=== PATIENT | male | born 1945 | race Caucasian/White ===

== ENCOUNTER 2018-03-31 11:00 | Inpatient (IN) | payer MEDICARE ==
[~2018-03-31] VITALS: Ht 188 cm; Wt 90.0 kg
[2018-03-31 13:58] LABS: BASOPHILS # (AUTO) 0.1 X10'3 (0-0.2); BASOPHILS % (AUTO) 0.3 % (0-1); EOSINOPHILS % (AUTO) 0 % (0-6); HEMATOCRIT 41.4 % (42.0-52.0); HEMOGLOBIN 13.2 g/dl (14.0-17.9); LYMPHOCYTES # (AUTO) 0.7 X10'3 (1.1-4.8); LYMPHOCYTES % (AUTO) 3.5 % (21-51); MEAN CORPUSCULAR HEMOGLOBIN 30.1 PG (27.0-31.0); MEAN CORPUSCULAR HGB CONC 31.9 g/dL (33.0-36.5); MEAN CORPUSCULAR VOLUME 94.4 FL (78-98); MEAN PLATELET VOLUME 8.8 FL (7.4-10.4); MONOCYTES # (AUTO) 1.5 X10'3 (0-0.9); MONOCYTES % (AUTO) 7.1 % (2-12); NEUTROPHILS % (AUTO) 89.1 % (42-75); PLATELET COUNT 291 X10'3 (140-440); RED BLOOD COUNT 4.38 X10'6 (4.70-6.10); RED CELL DISTRIBUTION WIDTH 13.3 % (11.5-14.5); WHITE BLOOD COUNT 21.3 X10'3 (4.5-11.0)
[2018-03-31 14:11] LABS: ALANINE AMINOTRANSFERASE 30 U/L (12-78); ALBUMIN 2.7 G/DL (3.4-5.0); ALBUMIN/GLOBULIN RATIO 0.6 (1.1-1.5); ALKALINE PHOSPHATASE 162 IU/L (46-116); ANION GAP 8 (8-16); ASPARTATE AMINO TRANSFERASE 28 U/L (10-37); BILIRUBIN,TOTAL 0.8 MG/DL (0.1-1.0); BLOOD UREA NITROGEN 29 MG/DL (7-18); BUN/CREATININE RATIO 30.5 (5.4-32.0); CALCIUM 9.3 MG/DL (8.5-10.1); CHLORIDE 99 MMOL/L (99-107); CREATININE 0.95 MG/DL (0.60-1.10); GLUCOSE 124 MG/DL (70-104); LIPASE 77 U/L (73-393); MAGNESIUM 2.2 MG/DL (1.5-2.4); POTASSIUM 4.4 MMOL/L (3.5-5.1); SODIUM 134 MMOL/L (135-145); eGFR 78 ML/MIN
[2018-03-31] MEDS ORDERED: normal saline 1000ML IV soln IVB ONE (14:50)
[2018-03-31] MEDS ORDERED: bisacodyl 10mg suppository rectal RC ONE (14:50)
[2018-03-31] MEDS ORDERED: iohexol 300mg/ml 100ml inj. ONE (14:57)
[2018-03-31 14:59] LABS: CLARITY,URINE CLEAR (Clear); COLOR,URINE AMBER (Yellow); GLUCOSE, URINE NEGATIVE (Neg); KETONES,URINE TRACE mg/dl (Neg); LEUKOCYTE ESTERASE ,URINE NEGATIVE (Neg); NITRITES, URINE NEGATIVE (Neg); OCCULT BLOOD,URINE NEGATIVE (Neg); PH,URINE 5.5 (4.8-8.0); PROTEIN,URINE 100 mg/dl (Neg)
[2018-03-31 15:02] LABS: UA COLLECTION TYPE URINAL
[2018-03-31 15:04] LABS: BACTERIA,URINE NONE SEEN /HPF (Neg); MUCUS STRANDS MODERATE /LPF (Neg); SQUAMOUS EPITHELIAL CELL,UR NONE SEEN /LPF (FEW); WBC,URINE 0-4 /HPF (0-4)
[2018-03-31 15:05] LABS: RBC,URINE 0-2 /HPF (0-2)
[2018-03-31 16:55] LABS: CREATINE KINASE 37 U/L (39-308)
[2018-03-31 16:58] LABS: PARTIAL THROMBOPLASTIN TIME 38 SECONDS (22-32); PROTHROMBIN TIME 10.2 SECONDS (9.0-12.0)
--- NOTE | 2018-03-31 17:02 | NUR ---
Willa Luna is PT's and would like to be called by RN. Her number is [phone].
[2018-03-31] MEDS ORDERED: normal saline 1000ml 1,000 ML IV SCH (17:39)
[2018-03-31] MEDS ORDERED: mag hydrox/Alum hydrox/simeth 30ml oral suspension PO PRN (17:40)
[2018-03-31] MEDS ORDERED: magnesium Cl slow-release 64mg tablet PO PRN (17:40)
[2018-03-31] MEDS ORDERED: magnesium 2GM in 50ml NS 50 ML IV PRN (17:40)
[2018-03-31] MEDS ORDERED: acetaminophen 325mg tablet PO PRN (17:40)
[2018-03-31] MEDS ORDERED: magnesium hydroxide 30ml (MOM) UD suspension PO PRN (17:40)
[2018-03-31] MEDS ORDERED: ondansetron/PF 4mg/2ml inj IV PRN ×2 (17:40→18:55)
[2018-03-31] MEDS ORDERED: potassium Cl 40MEQ/NS 500ml 500 ML IV PRN ×2 (17:40)
[2018-03-31] MEDS ORDERED: magnesium 4gm in 100ml NS 100 ML IV PRN (17:40)
[2018-03-31] MEDS ORDERED: potassium Cl 20 mEq SR tablet PO PRN ×2 (17:40)
[2018-03-31] MEDS ORDERED: ASPI-611 PO (17:53)
[2018-03-31] MEDS ORDERED: CITA20TA19 PO (17:53)
[2018-03-31] MEDS ORDERED: METO25TA6 PO (17:53)
[2018-03-31] MEDS ORDERED: ATOR80TA PO (17:53)
[2018-03-31] MEDS ORDERED: CARB-87 PO (17:53)
[2018-03-31] MEDS ORDERED: TEMA7.5C PO (17:56)
[2018-03-31] MEDS ORDERED: DOCU-28 PO (17:56)
[2018-03-31] MEDS ORDERED: TRAM50TA2 PO (17:56)
[2018-03-31] MEDS ORDERED: GABA100C PO (17:56)
[2018-03-31] MEDS ORDERED: NICO-687 TOP (17:56)
[2018-03-31] MEDS ORDERED: MULT-955 PO (17:56)
[2018-03-31] MEDS ORDERED: LIDOcaine 1% 30ml preserv. free vial ONE (18:40)
[2018-03-31] MEDS ORDERED: BUPIVAcaine/PF 2.5mg/ml (0.25%) 10ml vial ONE (18:40)
[2018-03-31] MEDS ORDERED: ringers solution, lacted 1,000 ML IV SCH (18:54)
[2018-03-31] MEDS ORDERED: meperidine/PF 25mg/ml syringe IV PRN ×3 (18:55)
[2018-03-31] MEDS ORDERED: proCHLORperazine 10 MG/2 ml inj IV PRN (18:55)
--- NOTE | 2018-03-31 18:57 | NUR ---
PATIENT CHANGED INTO GOWN, BELONGINGS PLACED INTO BAG, WATCH AND GLASSES REMOVED, PATIENT VOIDED, SALINE GTT ON EXTENSION TUBING UP, PRE-OP CHECK LIST INITIATED
[2018-03-31] MEDS: normal saline 1000ml 1,000 ML IV SCH (19:03)
[2018-03-31] MEDS: CefTRIAXone/D5W-Rocephin 1gm 50 ML IV SCH (19:50)
--- NOTE | 2018-03-31 19:52 | NUR ---
REC'D MESSAGE, AND RETURNED CALL TO SURGERY, UPDATED ON PATIENT, AND READINESS
--- NOTE | 2018-03-31 20:12 | NUR ---
PATIENT TO OR
[2018-03-31] MEDS ORDERED: glycopyrrolate 0.2mg/ml inj ONE (20:50)
[2018-03-31] MEDS ORDERED: neostigmine methylsulfate 1 MG/ML 10ml vial ONE (20:50)
[2018-03-31] MEDS ORDERED: dexamethasone sod phosphate 10mg/ml inj ONE (20:50)
[2018-03-31] MEDS ORDERED: desflurane 240ml liquid inh. IH ONE (20:50)
[2018-03-31] MEDS ORDERED: rocuronium 10mg/ml inj IV ONE ×2 (20:50)
[2018-03-31] MEDS ORDERED: midazolam 2 mg/2 ml injection ONE (21:01)
[2018-03-31] MEDS ORDERED: fentaNYL/PF 50MCG/1 ML 2ML syringe ONE (21:01)
[2018-03-31] MEDS ORDERED: LIDOcaine 2% (20mg/ml) 5ml vial ONE (21:18)
[2018-03-31] MEDS ORDERED: ketorolac trometh. 30mg/ml inj. ONE (22:29)
[2018-03-31] MEDS ORDERED: propofol inj 20 ML IV ONE (22:32)
[2018-03-31] MEDS ORDERED: ondansetron/PF 4mg/2ml inj ONE (22:32)
[2018-03-31 22:35] VITALS: BP 180/93
[2018-03-31] MEDS ORDERED: temazepam 15mg capsule PO PRN (22:35)
--- NOTE | 2018-03-31 22:35 | NUR ---
Received from OR via MEDICAL BED, accompanied by Anesthesiologist DR GELLER and report given by Anesthesiolgist. PT SLEEPY, O2 VIA MASK AT 10L. DRESSING TO ABD CDI. CRESENCIO DRAIN IN PLACE. ESCALANTE WITH [employer]SM, PULSES AND [employer]QUIPMENT MECHANIC WNL
[2018-03-31] MEDS ORDERED: acetaminophen 1,000mg/100ml IV 100 ML IV ONE (22:40)
[2018-03-31 22:45] VITALS: BP 172/79
[2018-03-31 22:55] VITALS: BP 165/65
--- NOTE | 2018-03-31 23:07 | NUR ---
RECEIVED PT. FROM RECOVERY ROOM AFTER LAP RAJAT PER BED TO ROOM 348 B.
[2018-03-31 23:15] VITALS: BP 145/71
[2018-03-31 23:30] VITALS: BP 143/74
[2018-03-31 23:45] VITALS: BP 138/75
[2018-04-01] VITALS (9 sets, daily range): BP systolic 94–146; BP diastolic 56–80
[2018-04-01] MEDS: carbidoba-levodopa 25-100mg tablet PO SCH ×3 (00:18→15:35)
[2018-04-01] MEDS: metroNIDAZOLE-Flagyl 500mg/NS 100 ML IV SCH ×3 (00:19→15:31)
[2018-04-01] MEDS: gabapentin 100mg capsule PO SCH ×4 (02:04→20:15)
[2018-04-01] MEDS: normal saline 1000ml 1,000 ML IV SCH ×2 (03:31→16:43)
--- NOTE | 2018-04-01 05:04 | NUR ---
STILL NOT VOIDED, BLADDER SCAN DONE 290 CC NOTED.
[2018-04-01 05:38] LABS: ALANINE AMINOTRANSFERASE 22 U/L (12-78); ALBUMIN 2.2 G/DL (3.4-5.0); ALBUMIN/GLOBULIN RATIO 0.6 (1.1-1.5); ALKALINE PHOSPHATASE 133 IU/L (46-116); ANION GAP 9 (8-16); ASPARTATE AMINO TRANSFERASE 76 U/L (10-37); BILIRUBIN,TOTAL 0.5 MG/DL (0.1-1.0); BLOOD UREA NITROGEN 30 MG/DL (7-18); CALCIUM 8.5 MG/DL (8.5-10.1); CHLORIDE 102 MMOL/L (99-107); GLUCOSE 147 MG/DL (70-104); MAGNESIUM 2.1 MG/DL (1.5-2.4); POTASSIUM 4.6 MMOL/L (3.5-5.1); SODIUM 136 MMOL/L (135-145); TOTAL CARBON DIOXIDE 25.4 MMOL/L (24-32); TOTAL PROTEIN 5.9 G/DL (6.4-8.2); eGFR 73 ML/MIN
[2018-04-01 05:46] LABS: BASOPHILS % (AUTO) 0 % (0-1); EOSINOPHILS % (AUTO) 0 % (0-6); HEMATOCRIT 32.9 % (42.0-52.0); HEMOGLOBIN 11.1 g/dl (14.0-17.9); LYMPHOCYTES # (AUTO) 0.4 X10'3 (1.1-4.8); LYMPHOCYTES % (AUTO) 3.2 % (21-51); MEAN CORPUSCULAR HGB CONC 33.8 g/dL (33.0-36.5); MEAN CORPUSCULAR VOLUME 94.7 FL (78-98); MONOCYTES # (AUTO) 0.5 X10'3 (0-0.9); MONOCYTES % (AUTO) 4.2 % (2-12); NEUTROPHILS % (AUTO) 92.6 % (42-75); PLATELET COUNT 231 X10'3 (140-440); RED BLOOD COUNT 3.48 X10'6 (4.70-6.10); RED CELL DISTRIBUTION WIDTH 12.9 % (11.5-14.5); WHITE BLOOD COUNT 11.9 X10'3 (4.5-11.0)
--- NOTE | 2018-04-01 06:05 | NUR ---
Patient in room [facility] 348. I have received report from ERIC Arenas and had the opportunity to ask questions and assume patient care.
--- NOTE | 2018-04-01 06:32 | NUR ---
Problems reprioritized. Patient report given, questions answered & plan of care reviewed with PASHA RN.
[2018-04-01] MEDS: K and/or MAG REPLACEMENT MC SCH (06:37)
[2018-04-01] MEDS: citalopram 20mg tablet PO SCH (07:45)
[2018-04-01] MEDS: metoprolol tartrate 25mg tablet PO SCH ×2 (07:45→20:16)
[2018-04-01] MEDS: CefTRIAXone/D5W-Rocephin 1gm 50 ML IV SCH (07:47)
[2018-04-01] MEDS ORDERED: nicotine 21mg patch - 24 hr TD SCH (08:00)
--- NOTE | 2018-04-01 14:15 | NUR ---
Dr. Combs rounded on pt. Discussed w/ pt plan fo rabx x2-3 d then rtn to [facility] or home, prn. PTx to resume here as at [facility].
--- NOTE | 2018-04-01 18:25 | NUR ---
Problems reprioritized. Patient report given, questions answered & plan of care reviewed with Luisa RN.
[2018-04-01] MEDS: traMADol 50MG tablet PO PRN (20:18)
[2018-04-02] MEDS: metroNIDAZOLE-Flagyl 500mg/NS 100 ML IV SCH ×2 (01:41→08:26)
[2018-04-02] MEDS: carbidoba-levodopa 25-100mg tablet PO SCH ×3 (01:41→15:25)
[2018-04-02] MEDS: gabapentin 100mg capsule PO SCH ×3 (01:41→13:16)
[2018-04-02 06:01] LABS: BASOPHILS % (AUTO) 0.2 % (0-1); EOSINOPHILS % (AUTO) 0.1 % (0-6); HEMATOCRIT 31.5 % (42.0-52.0); HEMOGLOBIN 10.3 g/dl (14.0-17.9); LYMPHOCYTES # (AUTO) 1.4 X10'3 (1.1-4.8); LYMPHOCYTES % (AUTO) 13.4 % (21-51); MEAN CORPUSCULAR HEMOGLOBIN 30.7 PG (27.0-31.0); MEAN CORPUSCULAR HGB CONC 32.6 g/dL (33.0-36.5); MEAN CORPUSCULAR VOLUME 94.1 FL (78-98); MEAN PLATELET VOLUME 7.8 FL (7.4-10.4); MONOCYTES % (AUTO) 9.8 % (2-12); NEUTROPHILS # (AUTO) 8.3 X10'3 (1.8-7.7); NEUTROPHILS % (AUTO) 76.5 % (42-75); PLATELET COUNT 221 X10'3 (140-440); RED BLOOD COUNT 3.35 X10'6 (4.70-6.10); WHITE BLOOD COUNT 10.7 X10'3 (4.5-11.0)
[2018-04-02 06:10] LABS: ALANINE AMINOTRANSFERASE 17 U/L (12-78); ALBUMIN 2.1 G/DL (3.4-5.0); ALBUMIN/GLOBULIN RATIO 0.6 (1.1-1.5); ALKALINE PHOSPHATASE 115 IU/L (46-116); ANION GAP 8 (8-16); ASPARTATE AMINO TRANSFERASE 47 U/L (10-37); BILIRUBIN,TOTAL 0.3 MG/DL (0.1-1.0); BLOOD UREA NITROGEN 20 MG/DL (7-18); BUN/CREATININE RATIO 24.7 (5.4-32.0); CALCIUM 8.3 MG/DL (8.5-10.1); CHLORIDE 105 MMOL/L (99-107); CREATININE 0.81 MG/DL (0.60-1.10); GLUCOSE 89 MG/DL (70-104); POTASSIUM 3.8 MMOL/L (3.5-5.1); SODIUM 138 MMOL/L (135-145); TOTAL CARBON DIOXIDE 25.5 MMOL/L (24-32); TOTAL PROTEIN 5.5 G/DL (6.4-8.2); eGFR > 90 ML/MIN
--- NOTE | 2018-04-02 06:25 | NUR ---
Patient in room [facility] 348. I have received report from ERIC Moran and had the opportunity to ask questions and assume patient care.
--- NOTE | 2018-04-02 06:30 | NUR ---
report given to ERIC Bray
[2018-04-02 07:00] VITALS: BP 162/80
[2018-04-02] MEDS: citalopram 20mg tablet PO SCH (07:42)
[2018-04-02] MEDS: traMADol 50MG tablet PO PRN (07:42)
[2018-04-02] MEDS: CefTRIAXone/D5W-Rocephin 1gm 50 ML IV SCH (07:44)
[2018-04-02] MEDS: metoprolol tartrate 25mg tablet PO SCH (07:44)
[2018-04-02] MEDS: K and/or MAG REPLACEMENT MC SCH (07:48)
[2018-04-02] MEDS: normal saline 1000ml 1,000 ML IV SCH (10:45)
[2018-04-02 11:00] VITALS: BP 93/54
--- NOTE | 2018-04-02 15:47 | NUR ---
[facility] Addendum: 04/02/18 at 1547 by Katarina Marquez RN Time of transfer [id number]
== END 2018-04-02 15:30 | DRG 854 ==
LOC: ER 11:00 → ED HOLD 17:39 → PACU 20:29 → SUR 3N 22:31
PROVIDERS: ADMIT Internal Medicine; ATTEND Internal Medicine
PROC: BW211ZZ Computerized Tomography (CT Scan) of Abdomen and Pelvis using Low Osmolar Contrast (ICD-10-PCS; 2018-03-31)
PROC: 0FT44ZZ Resection of Gallbladder, Percutaneous Endoscopic Approach (ICD-10-PCS; principal; 2018-03-31 20:50)
DX: A41.9 Sepsis, unspecified organism (principal); E87.1 Hypo-osmolality and hyponatremia; K81.0 Acute cholecystitis; E78.00 Pure hypercholesterolemia, unspecified; E78.5 Hyperlipidemia, unspecified; F32.9 Major depressive disorder, single episode, unspecified; E86.0 Dehydration; F03.90 Unspecified dementia, unspecified severity, without behavioral disturbance, psychotic disturbance, mood disturbance, and anxiety; G20 Parkinson's disease; I10 Essential (primary) hypertension; I25.10 Atherosclerotic heart disease of native coronary artery without angina pectoris; Z79.82 Long term (current) use of aspirin; Z86.73 Personal history of transient ischemic attack (TIA), and cerebral infarction without residual deficits; Z79.899 Other long term (current) drug therapy; Z88.5 Allergy status to narcotic agent; Z87.891 Personal history of nicotine dependence
CPT/HCPCS: 36415; 74018; 74177; 76700; 80053; 81001; 82550; 83605; 83690; 83735; 83874; 85025; 85610; 85730; 87040; 87070; 88304; 93005; 97116; 97162; 97530; 99285; A6251; A7000; G0378; J0131; J0696; J1100; J1885; J2001; J2175; J2250; J2405; J2704; J2710; J3010; J3490; J7030; J7120; Q9967

== ENCOUNTER 2018-12-24 14:04 | Emergency (ER) | payer MEDICARE ==
[~2018-12-24] VITALS: Ht 185.4 cm; Wt 95.0 kg
[~2018-12-24 14:04] MED LIST: ASPI-611 PO; ATOR80TA PO; CARB-87 PO; CITA20TA19 PO; DOCU-28 PO; GABA100C PO; METO25TA6 PO; MULT-955 PO; NICO-687 TOP; TEMA7.5C PO; TRAM50TA2 PO
--- NOTE | 2018-12-24 14:33 | NUR ---
Returned from CT scan with Ozzy Medrano RN. Assumed care of the patient. Dr. Rondon is at the bedside.
[2018-12-24 14:38] LABS: BASOPHILS # (AUTO) 0.1 X10'3 (0-0.2); BASOPHILS % (AUTO) 0.6 % (0-1); EOSINOPHILS % (AUTO) 0.4 % (0-6); HEMATOCRIT 45.2 % (42.0-52.0); HEMOGLOBIN 15.5 g/dl (14.0-17.9); LYMPHOCYTES # (AUTO) 2.1 X10'3 (1.1-4.8); LYMPHOCYTES % (AUTO) 21.9 % (21-51); MEAN CORPUSCULAR HEMOGLOBIN 31.9 PG (27.0-31.0); MEAN CORPUSCULAR HGB CONC 34.3 g/dL (33.0-36.5); MEAN PLATELET VOLUME 7.9 FL (7.4-10.4); MONOCYTES # (AUTO) 0.8 X10'3 (0-0.9); MONOCYTES % (AUTO) 8.2 % (2-12); NEUTROPHILS # (AUTO) 6.5 X10'3 (1.8-7.7); NEUTROPHILS % (AUTO) 68.9 % (42-75); PLATELET COUNT 184 X10'3 (140-440); RED BLOOD COUNT 4.85 X10'6 (4.70-6.10); RED CELL DISTRIBUTION WIDTH 13.7 % (11.5-14.5); WHITE BLOOD COUNT 9.4 X10'3 (4.5-11.0)
[2018-12-24 14:45] LABS: PARTIAL THROMBOPLASTIN TIME 26 SECONDS (22-32)
[2018-12-24 14:46] LABS: ALANINE AMINOTRANSFERASE 30 U/L (12-78); ALBUMIN 3.7 G/DL (3.4-5.0); ALBUMIN/GLOBULIN RATIO 1.1 (1.1-1.5); ALKALINE PHOSPHATASE 116 IU/L (46-116); ANION GAP 11 (8-16); ASPARTATE AMINO TRANSFERASE 38 U/L (10-37); BILIRUBIN,TOTAL 0.7 MG/DL (0.1-1.0); BLOOD UREA NITROGEN 22 MG/DL (7-18); BUN/CREATININE RATIO 19.1 (5.4-32.0); CALCIUM 8.9 MG/DL (8.5-10.1); CHLORIDE 103 MMOL/L (99-107); CREATININE 1.15 MG/DL (0.60-1.10); GLUCOSE 113 MG/DL (70-104); POTASSIUM 4.2 MMOL/L (3.5-5.1); SODIUM 138 MMOL/L (135-145); TOTAL CARBON DIOXIDE 23.9 MMOL/L (24-32); TOTAL PROTEIN 7.1 G/DL (6.4-8.2); eGFR 62 ML/MIN
[2018-12-24 14:50] LABS: TROPONIN I < 0.04 NG/ML (0.0-0.05)
[2018-12-24] MEDS ORDERED: LIDOcaine 1% 30ml preserv. free vial IJ STA (16:02)
[2018-12-24 16:37] VITALS: BP 122/64
== END 2018-12-24 16:39 | disposition home or self-care (01) ==
LOC: ER 14:05
DX: M54.12 Radiculopathy, cervical region (principal); R42 Dizziness and giddiness; R20.0 Anesthesia of skin; M79.18 Myalgia, other site; Z86.73 Personal history of transient ischemic attack (TIA), and cerebral infarction without residual deficits; Z98.890 Other specified postprocedural states; Z88.5 Allergy status to narcotic agent; Z79.82 Long term (current) use of aspirin; Z79.899 Other long term (current) drug therapy
CPT/HCPCS: 20553; 36415; 70450; 71045; 80053; 82948; 84484; 85025; 85610; 85730; 93005; 99284; J2001

== ENCOUNTER 2021-08-03 11:41 | Emergency (ER) | payer MEDICARE ==
[~2021-08-03] VITALS: Ht 188 cm; Wt 95.5 kg
[~2021-08-03 11:41] MED LIST changes: +CARB-296 PO; -CARB-87 PO; +LOP25T PO; -METO25TA6 PO
[2021-08-03 11:46] VITALS: BP 112/71
[2021-08-03 12:05] LABS: BASOPHILS # (AUTO) 0.1 X10'3 (0-0.2); BASOPHILS % (AUTO) 0.9 % (0-1); EOSINOPHILS % (AUTO) 0.4 % (0-6); HEMATOCRIT 46.3 % (42.0-52.0); HEMOGLOBIN 15.5 g/dl (14.0-17.9); LYMPHOCYTES # (AUTO) 1.4 X10'3 (1.1-4.8); LYMPHOCYTES % (AUTO) 15.1 % (21-51); MEAN CORPUSCULAR HEMOGLOBIN 30.8 PG (27.0-31.0); MEAN CORPUSCULAR HGB CONC 33.5 g/dL (33.0-36.5); MEAN CORPUSCULAR VOLUME 91.8 FL (78-98); MEAN PLATELET VOLUME 8.1 FL (7.4-10.4); MONOCYTES # (AUTO) 0.8 X10'3 (0-0.9); MONOCYTES % (AUTO) 9.1 % (2-12); NEUTROPHILS # (AUTO) 6.7 X10'3 (1.8-7.7); NEUTROPHILS % (AUTO) 74.5 % (42-75); PLATELET COUNT 178 X10'3 (140-440); RED BLOOD COUNT 5.04 X10'6 (4.70-6.10); RED CELL DISTRIBUTION WIDTH 13.6 % (11.5-14.5); WHITE BLOOD COUNT 8.9 X10'3 (4.5-11.0)
[2021-08-03 12:32] LABS: ALANINE AMINOTRANSFERASE 9 U/L (12-78); ALBUMIN 3.8 G/DL (3.4-5.0); ALBUMIN/GLOBULIN RATIO 1.3 (1.1-1.5); ALKALINE PHOSPHATASE 85 IU/L (46-116); ANION GAP 9 (8-16); ASPARTATE AMINO TRANSFERASE 14 U/L (10-37); BILIRUBIN,TOTAL 0.4 MG/DL (0.1-1.0); BLOOD UREA NITROGEN 25 MG/DL (7-18); BUN/CREATININE RATIO 26.6 (5.4-32.0); CALCIUM 9.1 MG/DL (8.5-10.1); CHLORIDE 108 MMOL/L (99-107); CREATININE 0.94 MG/DL (0.60-1.10); GLUCOSE 93 MG/DL (70-104); POTASSIUM 4.5 MMOL/L (3.5-5.1); SODIUM 145 MMOL/L (135-145); TOTAL CARBON DIOXIDE 28.2 MMOL/L (24-32); TOTAL PROTEIN 6.8 G/DL (6.4-8.2); eGFR 78 ML/MIN
== END 2021-08-03 13:40 | disposition left against medical advice (07) ==
LOC: ER 11:41
DX: R07.89 Other chest pain (principal); Z53.21 Procedure and treatment not carried out due to patient leaving prior to being seen by health care provider
CPT/HCPCS: 36415; 71045; 80053; 83880; 84484; 85025

== ENCOUNTER 2022-10-03 18:20 | Emergency (ER) | payer MEDICARE ==
[~2022-10-03] VITALS: Ht 185.4 cm; Wt 88.6 kg
[~2022-10-03 18:20] MED LIST changes: -CARB-296 PO; +CARB-321 PO
[2022-10-03 18:32] VITALS: BP 112/72; PULSE 93; TEMP 99; O2SAT 97
[2022-10-03 20:10] VITALS: RESP 16
[2022-10-03 20:22] LABS: BASOPHILS # (AUTO) 0.1 X10'3 (0-0.2); BASOPHILS % (AUTO) 0.5 % (0-1); EOSINOPHILS # (AUTO) 0.1 X10'3 (0-0.9); EOSINOPHILS % (AUTO) 0.5 % (0-6); HEMATOCRIT 48.6 % (42.0-52.0); HEMOGLOBIN 16.3 g/dl (14.0-17.9); LYMPHOCYTES # (AUTO) 0.6 X10'3 (1.1-4.8); LYMPHOCYTES % (AUTO) 4.1 % (21-51); MEAN CORPUSCULAR HEMOGLOBIN 31.6 PG (27.0-31.0); MEAN CORPUSCULAR HGB CONC 33.7 g/dL (33.0-36.5); MEAN CORPUSCULAR VOLUME 93.8 FL (78-98); MEAN PLATELET VOLUME 8.4 FL (7.4-10.4); MONOCYTES # (AUTO) 0.9 X10'3 (0-0.9); MONOCYTES % (AUTO) 6.1 % (2-12); NEUTROPHILS # (AUTO) 12.9 X10'3 (1.8-7.7); NEUTROPHILS % (AUTO) 88.8 % (42-75); PLATELET COUNT 172 X10'3 (140-440); RED BLOOD COUNT 5.18 X10'6 (4.70-6.10); WHITE BLOOD COUNT 14.5 X10'3 (4.5-11.0)
[2022-10-03 20:37] LABS: ALANINE AMINOTRANSFERASE 21 U/L (12-78); ALBUMIN 3.7 G/DL (3.4-5.0); ALBUMIN/GLOBULIN RATIO 1.2 (1.1-1.5); ALKALINE PHOSPHATASE 91 IU/L (46-116); ANION GAP 10 (8-16); ASPARTATE AMINO TRANSFERASE 20 U/L (10-37); BILIRUBIN,TOTAL 0.5 MG/DL (0.1-1.0); BLOOD UREA NITROGEN 28 MG/DL (7-18); BUN/CREATININE RATIO 24.3 (10.0-20.0); CALCIUM 8.8 MG/DL (8.5-10.1); CHLORIDE 103 MMOL/L (99-107); CREATININE 1.15 MG/DL (0.60-1.10); GLUCOSE 123 MG/DL (70-104); POTASSIUM 4.5 MMOL/L (3.5-5.1); SODIUM 136 MMOL/L (135-145); TOTAL CARBON DIOXIDE 22.8 MMOL/L (24-32); TOTAL PROTEIN 6.7 G/DL (6.4-8.2); eCRCL 62 ML/MIN; eGFR 62 ML/MIN
[2022-10-03 20:45] LABS: PRO BRAIN NATRIURETIC PEPTIDE 1133 PG/ML (0-450)
== END 2022-10-03 21:30 | disposition left against medical advice (07) ==
LOC: ER 18:21
DX: R07.89 Other chest pain (principal); Z88.5 Allergy status to narcotic agent; Z79.82 Long term (current) use of aspirin; Z79.899 Other long term (current) drug therapy
CPT/HCPCS: 36415; 71045; 80053; 83880; 84484; 85025; 93005; 99285